=== PATIENT | male | born 1975 ===

== ENCOUNTER 2017-03-04 14:55 | Emergency (ER) | payer OTHER ==
[2017-03-04 15:03] VITALS: BMI 37.5
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
[2017-03-04 17:01] VITALS: BP 131/87; PULSE 91; RESP 16; TEMP 98.6
[2017-03-06 14:24] VITALS: O2SAT 95
== END 2017-03-04 17:00 | disposition home or self-care (01) ==
LOC: C.ER 14:55
DX: M75.32 Calcific tendinitis of left shoulder (principal)
CPT/HCPCS: 73030; 96372; 99284; J1885